=== PATIENT | male | born 1990 | race Caucasian/White ===

== ENCOUNTER → 2019-12-30 07:26 | Outpatient (BNVA) | payer MEDICARE, MEDICAID, SELFPAY | PROVIDERS: Family Provider Nurse Practitioner Family; PCP Nurse Practitioner Family; Visit Provider Psychiatry & Neurology Psychiatry | DX: F90.2 Attention-deficit hyperactivity disorder, combined type (principal); F41.1 Generalized anxiety disorder; F70 Mild intellectual disabilities | CPT/HCPCS: 99213 ==

== ENCOUNTER → 2020-03-30 08:05 | Outpatient (BNVA) | payer MEDICARE, MEDICAID, SELFPAY | PROVIDERS: Family Provider Nurse Practitioner Family; PCP Nurse Practitioner Family; Visit Provider Psychiatry & Neurology Psychiatry | DX: F90.2 Attention-deficit hyperactivity disorder, combined type (principal); F41.1 Generalized anxiety disorder; F70 Mild intellectual disabilities | CPT/HCPCS: 99213 ==

== ENCOUNTER → 2020-06-01 07:27 | Outpatient (BNVA) | payer MEDICARE, MEDICAID, SELFPAY | PROVIDERS: Family Provider Nurse Practitioner Family; PCP Nurse Practitioner Family; Visit Provider Psychiatry & Neurology Psychiatry | DX: F90.2 Attention-deficit hyperactivity disorder, combined type (principal); F41.1 Generalized anxiety disorder; F70 Mild intellectual disabilities | CPT/HCPCS: 99213 ==

== ENCOUNTER → 2020-08-10 07:32 | Outpatient (BNVA) | payer MEDICARE, MEDICAID, SELFPAY | PROVIDERS: Family Provider Nurse Practitioner Family; PCP Nurse Practitioner Family; Visit Provider Psychiatry & Neurology Psychiatry | DX: F90.2 Attention-deficit hyperactivity disorder, combined type (principal); F41.1 Generalized anxiety disorder; F70 Mild intellectual disabilities | CPT/HCPCS: 99214 ==

== ENCOUNTER → 2020-10-16 07:29 | Outpatient (BNVA) | payer MEDICARE, MEDICAID, SELFPAY | PROVIDERS: Family Provider Nurse Practitioner Family; PCP Nurse Practitioner Family; Visit Provider Psychiatry & Neurology Psychiatry | DX: F41.1 Generalized anxiety disorder (principal); F90.2 Attention-deficit hyperactivity disorder, combined type; F70 Mild intellectual disabilities | CPT/HCPCS: 99214 ==